=== PATIENT | male | born 1995 | race Caucasian/White ===

== ENCOUNTER 2024-02-02 16:57 | Emergency (ER) | payer BC, OTHER ==
[2024-02-02] MEDS: EPINEPHrine 1 MG/ML SDV IM ONE (17:26)
[2024-02-02] MEDS: methylPREDNISolone Sodium Succinate 40 MG/1 ML SDV IM ONE (17:30)
== END 2024-02-02 18:59 | disposition home or self-care (01) ==
LOC: JP.ED 16:57
DX: T63.461A Toxic effect of venom of wasps, accidental (unintentional), initial encounter (principal); Z88.2 Allergy status to sulfonamides
CPT/HCPCS: 96372; 99283; J0171; J2919